=== PATIENT | male | born 1945 | race Caucasian/White ===

== ENCOUNTER 2016-12-02 07:36 | Emergency (ER) | payer MEDICARE, BC ==
[2011-12-22 07:46] VITALS: BMI 41.9
[2016-12-02 08:43] LABS: APPEARANCE CLOUDY (CLEAR); BILIRUBIN NEGATIVE (NEGATIVE); COLOR STRAW (YELLOW); EPITHELIAL CELLS RARE /hpf (0-5); GLUCOSE NEGATIVE (NEGATIVE); KETONE NEGATIVE (NEGATIVE); LEUKOCYTE ESTERASE NEGATIVE (NEGATIVE); NITRITE NEGATIVE (NEGATIVE); PROTEIN NEGATIVE (NEGATIVE); RED CELLS - URINE 0-5 /hpf (0-5); UROBILINOGEN NORMAL (NORMAL); WHITE CELLS - URINE NSEEN /hpf (0-5)
== END 2016-12-02 09:48 | disposition home or self-care (01) ==
LOC: D.ER 07:36
PROVIDERS: Family Medicine
DX: N41.0 Acute prostatitis (principal); R33.9 Retention of urine, unspecified

== ENCOUNTER 2016-12-11 05:49 | Inpatient (IN) | payer MEDICARE, BC ==
[2016-12-09 15:26] LABS: CALC OSMOLALITY 274 mosm/kg (275-300); CALCIUM 8.7 mg/dL (8.5-10.1); CARBON DIOXIDE 30.8 mmol/L (21.0-32.0); CHLORIDE - SERUM 99 mmol/L (98-107); CREATININE - SERUM 0.9 mg/dL (0.6-1.3); GLUCOSE 118 mg/dL (74-106); POTASSIUM - SERUM 4.2 mmol/L (3.5-5.1); SODIUM 137 mmol/L (136-145); UREA NITROGEN 13 mg/dL (7-18); eGFR NON AFRICAN AMERICAN 89 mL/min (90-120)
[2016-12-09 15:27] LABS: HEMATOCRIT 46.6 % (42.0-54.0); HEMOGLOBIN 16.4 g/dL (13.5-17.5); MCH 32.5 pg (26.0-34.0); MCHC 35.2 g/dL (31.0-37.0); MCV 92.5 fL (80.0-100.0); MEAN PLATELET VOLUME 9.8 fL (7.4-10.4); RBC 5.04 10x6/uL (4.20-6.10); RDW 12.7 % (11.5-14.5); WBC 9.4 10x3/uL (4.8-10.8)
[~2016-12-11] VITALS: Ht 180.3 cm; Wt 128.6 kg
[2016-12-11] MEDS ORDERED: K-TAB10 MEQ PO (11:33)
[2016-12-11] MEDS ORDERED: PROSCAR5 MG PO (11:42)
[2016-12-11] MEDS ORDERED: CIPRO500 MG PO (11:43)
[2016-12-11] MEDS ORDERED: FLOMAX0.4 MG PO (11:44)
[2016-12-11] MEDS ORDERED: NORMODYNE / TR300 MG PO (11:45)
[2016-12-11] MEDS ORDERED: ATIVAN1 MG PO (11:45)
[2016-12-11] MEDS ORDERED: CATAPRES TTS-20.2 MG TD (11:46)
[2016-12-11] MEDS ORDERED: [UNRECOGNIZED DRUG - OTHER] PO (11:47)
[2016-12-11] MEDS ORDERED: BUMEX 1 MG TAB1 MG PO (11:48)
[2016-12-11] MEDS ORDERED: HYDROCODON-ACE1 EAC7 PO (11:49)
[2016-12-11] MEDS ORDERED: BUMETANIDE0.5 MG PO (11:52)
[2016-12-11 12:15] VITALS: BP 176/89; BMI 39.7
[2016-12-11 16:50] VITALS: BP 172/83
[2016-12-11] MEDS ORDERED: CARDIZEM LA180 MG PO (16:58)
[2016-12-11] MEDS ORDERED: DICLOFENAC SODI50 MG PO (17:00)
--- NOTE | 2016-12-11 17:00 | NUR ---
RECIEVED TO ROOM 2215 VIA STRETCHER FROM RR S/P LASER TURP CHEN TO CONTINUOUS IRRIGATION. PINK TINGED IN TUBING NO CLOTS NOTED. LR AT 100 ML/HR VIA PUMP TO PIV LFA. ORINETD TO CALL LIGHT AND STAFF ROOM AND REMOTE.
[2016-12-11 17:16] VITALS: BP 172/83; Ht 180.3 cm; Wt 128.6 kg
--- NOTE | 2016-12-11 18:37 | NUR ---
NO ACUTE DISTRESS NOTED VOICES ALL NEDS TO STAFF. ALL ADLS PER STAFF ASSIST DENEIS PAIN OR DISCOMFORT
[2016-12-11 19:00] VITALS: BP 102/59; BP 153/68
--- NOTE | 2016-12-11 19:00 | NUR ---
PATIENT IN BED WATCHING TV. HOB 20 DEGREES. AAOX4. RR EVEN AND UNLABORED. 0 S/S OF DISTRESS. STATES PAIN IS A 2/10. IV TO LEFT FA PATENT WITH NO REDNESS OR SWELLING. 3-WAY CATHETER DRAINING PINK FLUID. SRX2. BED LOW. CALL LIGHT WITHIN REACH.
--- NOTE | 2016-12-11 21:30 | NUR ---
ASSESSMENT COMPLETE. NIGHTTIME MEDS GIVEN. PATIENT STATED THAT HE NEEDED HIS CARDIZEM. IT IS ON PATIENT'S MED REC BUT HAS NOT BEEN ADDRESSED. PATIENT TOOK HOME MEDICATION.
[2016-12-12] VITALS: BP 131/59
[2016-12-12 04:00] VITALS: BP 142/66
--- NOTE | 2016-12-12 04:23 | NUR ---
PATIENT SLEEPING WITH HOME CPAP ON. CALL LIGHT WITHIN REACH.
[2016-12-12 06:38] LABS: BASOPHILS 0.5 % (0.0-2.0); EOSINOPHILS 2.4 % (0-7); HEMATOCRIT 46.4 % (42.0-54.0); IMMATURE GRANULOCYTES 0.2 % (0-5); LYMPHOCYTES 17.3 % (15-50); MCH 32.3 pg (26.0-34.0); MCHC 34.5 g/dL (31.0-37.0); MCV 93.7 fL (80.0-100.0); MEAN PLATELET VOLUME 10.7 fL (7.4-10.4); MONOCYTES 8.9 % (2-11); NEUTROPHILS 70.7 % (40-80); PLATELET COUNT 207 10x3/uL (130-400); RBC 4.95 10x6/uL (4.20-6.10); RDW 12.9 % (11.5-14.5); WBC 9.9 10x3/uL (4.8-10.8)
--- NOTE | 2016-12-12 07:00 | NUR ---
REPORT RECIEVED ASSUMED CARE. PATIENT IN BED WITH IV INTACT. NO COMPLAINTS CALL LIGHT WITHIN REACH.
[2016-12-12 08:21] VITALS: BP 154/71
--- NOTE | 2016-12-12 10:24 | OP ---
PATIENT NAME: SOLOMON JANG MEDICAL RECORD: [id number] :49 LOCATION:D[id number] ADMISSION DATE:12/11/16 SURGEON: SOLOMON CONRAD MD DATE OF OPERATION: 12/11/2016 SURGEON: Solomon Conrad M.D. ANESTHESIOLOGIST: Spinal anesthesia by Dr. Blancas. PREOPERATIVE DIAGNOSES: Urinary retention, obstructive benign prostatic hyperplasia. FINDINGS: On cystoscopy with bilateral lateral lobe hyperplasia with obstruction. Very vascular prostate. PROCEDURE PERFORMED: GreenLight laser transurethral resection of the prostate, laser on time of 14 minutes and 29 seconds, total energy 76,743 joules. Also bipolar transurethral resection of the prostate. SPECIMEN: Prostate resection chips. ESTIMATED BLOOD LOSS: Minimal. COMPLICATIONS: None. CLINICAL HISTORY: This is a 71-year-old male, who initially presented to the Emergency Room with acute urinary retention. When a Thorpe catheter was placed, he had a postvoid residual of 1.3 liters. He has been on tamsulosin for some time. I also put him on Proscar. We gave him a voiding trial in the office and he seemed to be able to void. Over the weekend, he had a lot of difficulty voiding and he said he had to void every 2 hours or more frequently than that. I saw him in the office the following Wednesday. We did a bladder scan and his postvoid residual was over 300 mL. The patient does not want to wait several months for the Proscar to take effect. He would like to get an operation done to relieve his urinary retention. On digital rectal examination, his prostate is very large, about 80 grams or greater. His preoperative PSA was normal. Risks of surgery including bleeding, infection, persistence of urinary retention, urge urinary incontinence/urinary incontinence, retrograde ejaculation, erectile dysfunction were explained to the patient. We will try to perform a GreenLight laser transurethral resection of the prostate. He was given 2 grams of Ancef IV precision machinist to the OR. DESCRIPTION OF PROCEDURE: The patient was given spinal anesthetic. He was then placed into dorsal lithotomy position, prepped and draped. We performed cystoscopy with the laser resection scope, which is about 21-Niuean in size and a continuous flow scope it is. Normal saline was used for irrigation. The urethra was normal with no signs of obstruction or tumors. Going into the prostate, we found bilateral lateral lobe obstruction of the lateral lobes meet in the midline. The verumontanum was clearly seen at the apex of the prostate. Going into the bladder neck, there is no significant median lobe. His ureteral orifices are seen at a distance away from the bladder neck. The bladder is moderately trabeculated with some cellules, but no bladder tumors were seen. We started at the 6 o'clock position in the prostate and a resection was confined from the bladder neck to just proximal to the verumontanum. Using 80 schuster of power, we made a channel in the posterior prostate. Towards the apex of the OPERATIVE REPORT [id number] SOLOMON JANG prostate, we encountered quite significant bleeding. Eventually with a lot of difficulty and using the coagulation setting on the laser, we were able to get the apical bleeding under control. We then switched to 120 schuster of power and most of the lateral lobes were controlled this way. Again, when we ran into the apex of the prostate ____ significant arterial bleeding. We had to again cut the power down to 40 schuster and with a combination of 40 schuster for laser cut and laser coagulation, we managed to get the bleeding under control once more. At the end of this laser resection, he seemed to have a pretty good channel. We had controlled all arterial bleeding. There was minimal venous bleeding. I then tried to insert a 24-Niuean 3-way Thorpe catheter into the bladder, but it got hung up on the irregular tissue that we resected in the prostate. After several attempts to insert the catheter were unsuccessful, I looked in again. I attempted to insert the Thorpe catheter and cleared up more bleeding. Trying to use a laser to control the bleeding ____ near the apex. At this point, I decided to introduce the bipolar resectoscope. A 27-Niuean resectoscope with 24-Niuean resection loop was used. This allowed me to perform pinpoint cautery on the bleeding sources. Also, the ragged tissue, which was creating an obstruction to the Thorpe catheter passage was removed. These resection chips were irrigated out using an [employer] evacuator and sent to pathology in formalin. At the end of the procedure, I could see no further bleeding either arterial or venous. There was a wide open channel visible from the bladder neck to the region of the prostatic apex. The scope was removed. Also, on cystoscopy, we saw no further specimens in the bladder. The scope was removed and we introduced an 18-Niuean 3-way Thorpe catheter and this went in easily into the bladder. The balloon was inflated with 20 cc of sterile water. Continuous bladder irrigation with normal saline was started. I will put the patient in to the hospital for observation. If his drainage remains pretty clear overnight and his CBC tomorrow remains unchanged, then he can go home with the Thorpe catheter to bag drainage and I will see him in the office in the following Wednesday to have the Thorpe catheter removed. TRANSINT:[id number] Voice Confirmation ID: [id number] DOCUMENT ID: [id number] SOLOMON CONRAD MD at 1024 CC: [id number] DICTATION DATE: 12/11/16 161 FIELD CARE MANAGER: 12/11/16 1843 ADM IN [facility] [address] [place] [address]
[2016-12-12 11:51] VITALS: BP 134/62
[2016-12-12] MEDS ORDERED: HYDROCODON-ACE1 EAC7 PO (13:15)
--- NOTE | 2016-12-12 14:00 | NUR ---
PATIENT CATHETER PLUGGED AND LEG BAG PLACED ON PATIENT. SHOWED PATIENT HOW TO CHANGE OUT BAGS. VERBALIZED UNDERSTANDING. IV REMOVED WITH CATH TIP INTACT. CALL LIGHT WITHIN REACH.
--- NOTE | 2016-12-12 14:15 | NUR ---
PATIENT RECIEVED DC PAPERS AND PRESCRIPTION. NO QUESTIONS AT THIS TIME. VERBALIZED UNDERSTANDING. AWAITING TRANSPORTATION FROM . CALL LIGHT WITHIN REACH.
--- NOTE | 2016-12-18 10:56 | DS ---
PATIENT:KARTHIK JANG :49 MEDICAL RECORD: [id number] DISCHARGE SUMMARY ADMISSION DATE: 12/11/16 DISCHARGE DATE: 12/12/16 DATE OF ADMISSION: 12/11/2016. DATE OF DISCHARGE: 12/12/2016. DIAGNOSIS: Urinary retention due to obstructive benign prostatic hypertrophy. POSTOPERATIVE DIAGNOSIS: Urinary retention due to obstructive benign prostatic hypertrophy. PROCEDURE: Cystoscopy GreenLight laser transurethral resection of the prostate and also bipolar transurethral resection of the prostate. COMPLICATIONS: None. CLINICAL HISTORY: This is a 71-year-old male with a longstanding history of BPH. He came to the Emergency Room with acute urinary retention with a postvoid residual of 1.3 liters. He was started on finasteride as well as his ongoing tamsulosin. He had a voiding trial in the office and he did manage to void. However, he had increasing urinary frequency over the course of a weekend and when I saw him in the office, his postvoid residual was over 300 mL. He decided to have surgical intervention instead of relying on the medical treatment. The surgery was performed. He had some bleeding from the apex of the prostate. I did switch to bipolar resection to control the apical bleeding. Postoperatively, he was kept for observation with continuous bladder irrigation. His hemoglobin level the next morning was 16, so clearly he did not have any significant blood loss. He is going to be discharged home today with the Thorpe catheter to bag drainage. I will see him in followup in a couple of days on Wednesday afternoon to remove the Thorpe catheter for a voiding trial. He does not really have any discomfort and noticed no scripts were given to him. TRANSINT:[id number] Voice Confirmation ID: [id number] DOCUMENT ID: [id number] KARTHIK CONRAD MD at 1056 CC: [id number] DICTATION DATE: 12/12/16 1058 CHAIR MAKER: 12/12/16 1159 DIS IN 12/12/16 [place] [id number]
== END 2016-12-12 15:16 | disposition home or self-care (01) | DRG 713 ==
LOC: D.OPS 05:49 → D.MS 16:29 → D.OPS 16:30 → D.MS 12-12 15:16
PROVIDERS: Anesthesiology; ADMIT Urology
PROC: 0VT08ZZ Resection of Prostate, Via Natural or Artificial Opening Endoscopic (ICD-10-PCS; principal; 2016-12-11 13:30)
PROC: 0TJB8ZZ Inspection of Bladder, Via Natural or Artificial Opening Endoscopic (ICD-10-PCS; 2016-12-11 13:30)
DX: N40.1 Benign prostatic hyperplasia with lower urinary tract symptoms (principal); N13.8 Other obstructive and reflux uropathy; I10 Essential (primary) hypertension

== ENCOUNTER 2016-12-11 16:30 | Outpatient (CLI) | payer MEDICARE, BC ==
[~2016-12-11 16:30] MED LIST: ATIVAN1 MG PO; BUMETANIDE0.5 MG PO; BUMEX 1 MG TAB1 MG PO; CATAPRES TTS-20.2 MG TD; CIPRO500 MG PO; FLOMAX0.4 MG PO; HYDROCODON-ACE1 EAC7 PO; K-TAB10 MEQ PO; NORMODYNE / TR300 MG PO; PROSCAR5 MG PO; [UNRECOGNIZED DRUG - OTHER] PO
[2016-12-11] MEDS ORDERED: CARDIZEM LA180 MG PO (16:58)
[2016-12-11] MEDS ORDERED: DICLOFENAC SODI50 MG PO (17:00)
[2016-12-11 17:16] VITALS: BMI 39.5
[2016-12-12] MEDS ORDERED: HYDROCODON-ACE1 EAC7 PO (13:15)
== END 2016-12-12 13:16 | disposition short-term general hospital (02) ==
LOC: D.OPS 16:30
DX: N40.1 Benign prostatic hyperplasia with lower urinary tract symptoms (principal); R33.9 Retention of urine, unspecified; Z01.812 Encounter for preprocedural laboratory examination; I10 Essential (primary) hypertension; N13.8 Other obstructive and reflux uropathy

== ENCOUNTER → 2017-01-08 19:23 | Outpatient (CLI) | payer MEDICARE, BC ==
[2016-12-11 17:16] VITALS: BMI 39.5
[~2017-01-08 19:23] MED LIST changes: +CARDIZEM LA180 MG PO; +DICLOFENAC SODI50 MG PO
== END | disposition home or self-care (01) ==
LOC: D.LABREF 19:23
DX: R31.9 Hematuria, unspecified (principal)

== ENCOUNTER → 2017-04-02 19:42 | Outpatient (CLI) | payer MEDICARE, BC ==
[2017-04-02 19:57] LABS: APPEARANCE CLEAR (CLEAR); BILIRUBIN NEGATIVE (NEGATIVE); COLOR YELLOW (YELLOW); GLUCOSE NEGATIVE (NEGATIVE); KETONE NEGATIVE (NEGATIVE); LEUKOCYTE ESTERASE NEGATIVE (NEGATIVE); NITRITE NEGATIVE (NEGATIVE); PROTEIN NEGATIVE (NEGATIVE); UROBILINOGEN NORMAL (NORMAL)
== END | disposition home or self-care (01) ==
LOC: D.LABREF 19:42
PROVIDERS: Urology
DX: N39.0 Urinary tract infection, site not specified (principal)

== ENCOUNTER → 2017-04-19 18:43 | Outpatient (CLI) | payer MEDICARE, BC | END | disposition home or self-care (01) | LOC: D.LABREF 18:43 | DX: N39.0 Urinary tract infection, site not specified (principal) ==

== ENCOUNTER → 2019-02-17 13:43 | Outpatient (CLI) | payer MEDICARE, BC ==
[~2019-02-17 13:43] MED LIST changes: +AVAPRO300 MG PO
== END | disposition home or self-care (01) ==
LOC: D.LABREF 13:43
PROVIDERS: ATTEND Urology
DX: R31.9 Hematuria, unspecified (principal)

== ENCOUNTER → 2019-02-22 16:37 | Outpatient (CLI) | payer MEDICARE, BC ==
[~2019-02-22 16:37] MED LIST changes: -AVAPRO300 MG PO
== END | disposition home or self-care (01) ==
LOC: D.LABREF 16:37
PROVIDERS: ATTEND Urology
DX: R31.9 Hematuria, unspecified (principal)

== ENCOUNTER → 2019-03-01 13:16 | Outpatient (CLI) | payer MEDICARE, BC | END | disposition home or self-care (01) | LOC: D.CT 13:16 | PROVIDERS: ATTEND Urology | DX: R31.0 Gross hematuria (principal) ==

== ENCOUNTER → 2019-03-08 09:43 | Outpatient (CLI) | payer MEDICARE, BC | END | disposition home or self-care (01) | LOC: D.HCCARDIO 09:30 | PROVIDERS: ATTEND Internal Medicine Cardiovascular Disease | DX: I10 Essential (primary) hypertension (principal) ==

== ENCOUNTER 2019-03-30 05:27 | Day surgery (SDC) | payer MEDICARE, BC ==
[~2019-03-30] VITALS: Ht 180.3 cm; Wt 131.1 kg
[~2019-03-30 05:27] MED LIST changes: +AVAPRO300 MG PO
[2019-03-30 05:59] LABS: HEMATOCRIT 42.8 % (42.0-54.0); HEMOGLOBIN 15.1 g/dL (13.5-17.5); MCHC 35.3 g/dL (31.0-37.0); MCV 90.7 fL (80.0-100.0); MEAN PLATELET VOLUME 9.7 fL (7.4-10.4); RBC 4.72 10x6/uL (4.20-6.10); RDW 12.7 % (11.5-14.5); WBC 7.5 10x3/uL (4.8-10.8)
[2019-03-30 07:14] VITALS: BP 168/79; Ht 180.3 cm; Wt 131.1 kg
--- NOTE | 2019-03-30 10:00 | NUR ---
REC'D FROM RR. FAMILY AT BEDSIDE. CHEN TO GRAVITY DRAINAGE WITH BLOODY URINE NOTED IN BAG. ICE WATER AND FL TRAY SERVED.
--- NOTE | 2019-03-30 10:30 | NUR ---
EATING FL. DIET. ASKING ABOUT PAIN MEDICATION. RELATED SHOWS HE IS ON HYDROCODONE. PT RELATES TAKERS ONE A DAY. INFORMED PT HE IS TO USE THE PAIN MED EVERY HOURS NEEDED. RELATES HE WILL NEED A RX IF THE DOCTOR HAD INCREASED IT.
--- NOTE | 2019-03-30 10:45 | NUR ---
CALLED SURGERY TO TALK WITH DR CONRAD REGARDING RX. UNAVAILABLE. RELATED WILL SEND HIM TO OUTPATIENT WHEN IS AVAILABLE.
--- NOTE | 2019-03-30 10:54 | OP ---
PATIENT NAME: SOLOMON JANG MEDICAL RECORD: [id number] :49 LOCATION:D[facility] ED ADMISSION DATE: SURGEON: SOLOMON CONRAD MD DATE OF OPERATION: 03/30/2019 SURGEON: Solomon Conrad MD DONOR SERVICES TECHNICIAN: General anesthesia by Dima Kowalski CRNA. DIAGNOSES: Obstructive BPH with gross hematuria, IPSS score is 14, quality of life score is 5 after a GreenLight TURP in 2017. PVR is 9 mL and on digital rectal examination, prostate is about 40 to 50 grams in size. FINDINGS: Very long obstructive lateral lobes with no median lobe. Vascular prostatic urethra. Single ureteral orifices bilaterally in the bladder with no bladder tumors seen. PROCEDURES: UroLift times 7 units deployed and 6 held. CLINICAL HISTORY: This is a 73-year-old male, who had urinary retention in 2017. He had a GreenLight laser TURP on 12/11/2016. He then started testosterone injections and now he has episodes of gross hematuria. He also has some voiding symptoms including nocturia times 2-3 and the slowing down of the urinary flow. He comes today for cystoscopy, possible fulguration of bleeders. He will also be getting the UroLift procedure done. HE IS ALLERGIC TO LISINOPRIL. He was given Ancef laboratory monitor to the OR. DESCRIPTION OF PROCEDURE: The patient was given induction of general anesthesia. He was then placed into the dorsal lithotomy position and prepped and draped. The 21-Romanian cystoscope with 30-degree lens was used for visualization. There were no penile urethral strictures. The prostatic urethra is vascular, long and obstructive in the lateral lobes. In the bladder, no bladder tumors were seen. I started with placement of the 2 units of the UroLift at the bladder neck level. These were placed about 1.5 cm distal to the bladder neck at the anterolateral sulcus of the lateral lobe. One unit was placed on each side. This went in without any difficulty. We then placed 2 units at the level of the verumontanum, 1 unit on each side at the anterolateral sulcus. Looking in with the obturator, the mid urethra was still obstructed. I placed 1 unit on the right mid urethra at the mid urethral level. This unit went in without any difficulty. On the left mid urethral level, the first unit struck bone and it did not hold. This unit was discarded. I fired again a second unit and this last unit did hold. Because of the vascularity of the prostatic urethra, I decided to insert a catheter. The cystoscope was reinserted into the bladder. A Sensor wire was placed into the bladder through the cystoscope. The scope was then removed, leaving the wire in place. A 16-Romanian omaha tip Thorpe catheter was then inserted into the bladder over the wire. Once the catheter was fully in the bladder, the balloon was inflated with 10 cc of sterile water. The wire was then removed entirely. The bag was put to drainage. I will see him next week to remove the Thorpe catheter. TRANSINT:[id number] Voice Confirmation ID: [id number] DOCUMENT ID: [id number] OPERATIVE REPORT [id number] SOLOMON JANG, SOLOMON Emanuel MD at 1054 CC: [id number] DICTATION DATE: 03/30/19918 CORPORATE RISK ANALYST: 03/30/19 1054 REG [facility] [address] [place] [address]
--- NOTE | 2019-03-30 11:00 | NUR ---
TOLERATED DIET. EXPLAINED TO PT WAITING FOR DR CONRAD TO ADDRESS REQUEST FOR PAIN MED. AT BEDSIDE.
--- NOTE | 2019-03-30 11:20 | NUR ---
IV DC'D WITH CATHETER INTACT. WRITTEN AND VERBAL DC INST. GIVEN TO PT. ALONG WITH RX. VERBALIZED UNDERSTANDING.
--- NOTE | 2019-03-30 11:40 | NUR ---
DC'D HOME WITH FAMILY VIA PRIVATE VEHICLE. STABLE AT TIME OF DC.
== END 2019-03-30 11:40 | disposition home or self-care (01) ==
LOC: D.OPS 05:27 → D.PAN 09:00 → D.OPS 11:40
PROVIDERS: Anesthesiology; ATTEND Urology
DX: N40.1 Benign prostatic hyperplasia with lower urinary tract symptoms (principal); N13.8 Other obstructive and reflux uropathy; R35.1 Nocturia; R39.12 Poor urinary stream; R31.0 Gross hematuria; Z01.812 Encounter for preprocedural laboratory examination

== ENCOUNTER → 2019-04-13 08:29 | Outpatient (CLI) | payer MEDICARE, BC ==
[2019-03-30 07:14] VITALS: BMI 40.4
== END | disposition home or self-care (01) ==
LOC: D.MRI 04-12 16:00
PROVIDERS: ATTEND Urology
DX: N28.1 Cyst of kidney, acquired (principal)

== ENCOUNTER → 2020-02-23 08:53 | Outpatient (CLI) | payer MEDICARE, BC ==
[2019-03-30 07:14] VITALS: BMI 40.4
== END | disposition home or self-care (01) ==
LOC: D.HCCECHO 08:30
PROVIDERS: ATTEND Internal Medicine Cardiovascular Disease
DX: I10 Essential (primary) hypertension (principal)

== ENCOUNTER → 2021-03-19 08:12 | Outpatient (CLI) | payer MEDICARE, BC ==
[2019-03-30 07:14] VITALS: BMI 40.4
== END | disposition home or self-care (01) ==
LOC: D.HCCECHO 08:12
PROVIDERS: ATTEND Internal Medicine Cardiovascular Disease
DX: I10 Essential (primary) hypertension (principal)